=== PATIENT | female | born 1990 | race Caucasian/White ===

== ENCOUNTER 2017-10-08 16:51 | Emergency (ER) | END 2017-10-08 17:01 | disposition home or self-care (01) ==

== ENCOUNTER 2018-10-11 13:17 | Emergency (ER) | payer BC ==
[~2018-10-11] VITALS: Ht 167.6 cm; Wt 81.0 kg
[~2018-10-11 13:17] MED LIST: AMOX500C2 PO; BEN25 PO; GUAI-173 PO; IBUP-1542 PO
[2018-10-11 13:19] VITALS: BP 135/80; PULSE 78; RESP 16; Ht 167.6 cm; Wt 81.0 kg
[2018-10-11] MEDS ORDERED: KETOROLAC 60 MG INJ IM STA (14:13)
[2018-10-11] MEDS ORDERED: DEXAMETHASONE 10 MG/ML 1 ML INJ IM ONE (14:30)
[2018-10-11] MEDS ORDERED: CETI10TA19 PO (14:32)
[2018-10-11] MEDS ORDERED: FLUT16SP17 NASAL (14:32)
[2018-10-11] MEDS ORDERED: IBUP-1542 PO (14:32)
--- NOTE | 2018-10-11 18:39 | ERD ---
ER Documentation Chief Complaint Chief Complaint pt is bib self with c/o left ear pain for a few days HPI History of Present Illness: 28-year-old female with no past medical history coming in today with complaint of left ear pain is been present for 2 to 3 days. Patient reporting runny nose, cough, postnasal drip, frequent clearing of throat. Patient denies any other associated symptoms. At home pharmacological/nonpharmacological treatment for symptoms: Denies Denies social concerns; Denies recent foreign travel ROS All systems reviewed and are negative except as per history of present illness. Medications Home Meds Active Scripts Ibuprofen* (Motrin*) 600 Mg Tab, 600 MG PO Q6H PRN for PAIN AND OR ELEVATED TEMP, #30 TAB Prov:KATE RICH NP 10/11/18 Cetirizine Hcl* (Cetirizine Hcl*) 10 Mg Tablet, 10 MG PO DAILY for PRN ALLERGIES/COUGH/RUNNY NOSE, #30 TAB Prov:KATE RICH NP 10/11/18 Fluticasone Propionate* (Fluticasone Propionate* Nasal) 50 Mcg/[place] - 16 Gm [place].susp, 1 SPRAY NASAL DAILY for NASAL CONGESTION/STUFFY NOSE, #1 BOTTLE TO EACH NOSTRIL Prov:KATE RICH NP 10/11/18 Guaifenesin* (Tussin*) 100 Mg/5 Ml Syrup, 200 MG PO Q6 PRN for COUGH, #120 ML Prov:PARDEEPKARLENE C 10/08/17 Ibuprofen* (Motrin*) 600 Mg Tab, 600 MG PO Q6, #30 TAB Prov:PARDEEPKARLENE C 10/08/17 Amoxicillin* (Amoxicillin*) 500 Mg Cap, 500 MG PO BID for 10 Days, CAP Prov:PARDEEP,KARLENE C 10/08/17 Diphenhydramine Hcl* (Benadryl*) 25 Mg Cap, 25 MG PO Q6, #30 CAP Prov:LISETTE LOPEZ MD 12/03/15 Allergies Allergies: Coded Allergies: No Known Allergy (Unverified , 12/03/15) PMhx/Soc Medical and Surgical Hx: pt denies Medical Hx, pt denies Surgical Hx Hx Alcohol Use: No Hx Substance Use: No Hx Tobacco Use: No Smoking Status: Never smoker FmHx Family History: diabetes; No coronary disease Physical Exam Vitals Vital Signs Date Temp Pulse Resp B/P (MAP) Pulse Ox O2 O2 Flow FiO2 Time Delivery Rate 10/11/18 98.9 78 16 135/80 96 13:19 (98) Physical Exam Const: No acute distress Head: Atraumatic Eyes: Normal Conjunctiva ENT: Normal External Ears, Mouth. Nasal mucosa erythematous, nasal turbinates swollen. Bilateral tympanic membranes without erythema, perforation, bulging. Neck: Full range of motion. No meningismus. Resp: Clear to auscultation bilaterally Cardio: Regular rate and rhythm, no murmurs Abd: Soft, non tender, non distended. Normal bowel sounds Skin: No petechiae or rashes Back: No midline or flank tenderness Ext: No cyanosis, or edema Neur: Awake and alert Psych: Normal Mood and Affect Results 24 hrs Laboratory Tests Test 10/11/18 14:40 POC Beta HCG, Qualitative NEGATIVE Current Medications Medications Dose Sig/Mona Start Time Status Last (Trade) Ordered Route PRN Stop Time Admin Dose Reason Admin 8 mg ONCE ONCE 10/11/18 DC 10/11/18 Dexamethasone IM 14:30 15:01 (Decadron) 10/11/18 14:31 Ketorolac 60 mg ONCE STAT 10/11/18 DC 10/11/18 Tromethamine IM 14:13 15:01 (Toradol) 10/11/18 14:14 Procedures/MDM ED course includes a thorough examination and history. Medications: Dexamethasone, ketorolac Imaging: -- Labs: Urine Low suspicion for life-threatening medical emergency. Low suspicion for infectious emergency, patient hemodynamically stable and afebrile without use of antipyretics. Low suspicion for acute HEENT medical emergency that requires hospitalization or immediate surgical intervention. Otherwise healthy patient presenting with constellation of symptoms likely representing uncomplicated allergic rhinitis as characterized by history, physical exam findings, lab findings. Urine negative for infection No respiratory distress, otherwise relatively well appearing and nontoxic. Patient educated on diagnoses, prescriptions, follow-up care, return precautions. Strict return precautions given for worsening condition; questions answered discharge. Disposition for discharge with followup in 2 days with PCP/clinic. Departure Diagnosis: Primary Impression: Allergic rhinitis Allergic rhinitis trigger: unspecified Allergic rhinitis seasonality: unspecified Qualified Codes: J30.9 - Allergic rhinitis, unspecified Condition: Stable Patient Instructions: Allergic Rhinitis Referrals: COMMUNITY CLINICS YOU HAVE RECEIVED A MEDICAL SCREENING EXAM AND THE RESULTS INDICATE THAT YOU DO NOT HAVE A CONDITION THAT REQUIRES URGENT TREATMENT IN THE EMERGENCY DEPARTMENT. FURTHER EVALUATION AND TREATMENT OF YOUR CONDITION CAN WAIT UNTIL YOU ARE SEEN IN YOUR DOCTORS OFFICE WITHIN THE NEXT 1-2 DAYS. IT IS YOUR RESPONSIBILITY TO MAKE AN APPOINTMENT FOR FOLOW-UP CARE. IF YOU HAVE A PRIMARY DOCTOR --you should call your primary doctor and schedule an appointment IF YOU DO NOT HAVE A PRIMARY DOCTOR YOU CAN CALL OUR PHYSICIAN REFERRAL HOTLINE AT IF YOU CAN NOT AFFORD TO SEE A PHYSICIAN YOU CAN CHOSE FROM THE FOLLOWING [facility] [address] [facility]. [facility] [address] [facility] [facility] [address] [facility] [facility] [address] [facility] [facility] [address] [facility]. [facility] [address] [facility]. [facility] YOU HAVE RECEIVED A MEDICAL SCREENING EXAM AND THE RESULTS INDICATE THAT YOU DO NOT HAVE A CONDITION THAT REQUIRES URGENT TREATMENT IN THE EMERGENCY DEPARTMENT. FURTHER EVALUATION AND TREATMENT OF YOUR CONDITION CAN WAIT UNTIL YOU ARE SEEN IN YOUR DOCTORS OFFICE WITHIN THE NEXT 1-2 DAYS. IT IS YOUR RESPONSIBILITY TO MAKE AN APPOINTMENT FOR FOLOW-UP CARE. IF YOU HAVE A PRIMARY DOCTOR --you should call your primary doctor and schedule and appointment IF YOU DO NOT HAVE A PRIMARY DOCTOR YOU CAN CALL OUR PHYSICIAN REFERRAL HOTLINE AT . IF YOU CAN NOT AFFORD TO SEE A PHYSICIAN YOU CAN CHOSE FROM THE FOLLOWING [facility] INSTITUTIONS: [facility] [address] [place] [address] [facility] [address] [place] [address] [facility] [address] [place] [address] Additional Instructions: Thank you very much for allowing us to participate in your care. Your health and safety is our top priority at [facility]. It is important to read all discharge instructions and education provided in your discharge packet. Call your primary care doctor TOMORROW for an appointment during the next 2-4 days and bring all the information and medications prescribed. Have prescriptions filled and follow precisely the directions on the label. -Cetirizine as an antihistamine that should not cause drowsiness; take this medication every day for allergy-like symptoms/cough/runny nose. --Fluticasone Is a Steroid Nose [place] for the Nose; Use This Every Day for Stuffy Nose/Nasal Congestion. -Ibuprofen 600 mg is a anti-inflammatory/pain medication; take this medication daily as prescribed for the next week to help with swelling/inflammation/pain. If the symptoms get worse and your provider is unavailable, return to the Emergency Department immediately. KATE RICH NP Oct 11, 2018 18:39
== END 2018-10-11 15:06 | disposition home or self-care (01) ==
LOC: FTE 13:17
DX: J30.9 Allergic rhinitis, unspecified (principal)
CPT/HCPCS: 81025; 96372; 99284; J1100; J1885